=== PATIENT | male | born 1975 | race Caucasian/White ===

== ENCOUNTER 2022-07-28 02:22 | Emergency (ER) | payer BC ==
[2022-07-28 02:37] VITALS: BP 144/72; PULSE 68; RESP 20; TEMP 97.6; BMI 30.8
[2022-07-28] MEDS ORDERED: MAGNESIUM SULF 50% (8.12 MEQ/2 ML-1 GM VIAL) IVPB ONE (03:16)
[2022-07-28] MEDS ORDERED: DEXAMETHASONE SOD PHOSPHATE 20 MG/5 ML VIAL IVPB ONE (03:17)
[2022-07-28] MEDS ORDERED: DEXAMETHASONE SOD PHOSPHATE 10 MG/1 ML VIAL ONE (03:24)
[2022-07-28] MEDS ORDERED: ALBUTEROL SO4 2.5/IPRATROPIUM 0.5 INH SOL 3 ML VIAL.NEB. NEB ONE (03:25)
[2022-07-28] MEDS ORDERED: MAGNESIUM SULFATE IN WATER 2 GM/50 ML IVPB IVPB ONE (03:29)
[2022-07-28] MEDS: ALBUTEROL SO4 2.5/IPRATROPIUM 0.5 INH SOL 3 ML VIAL.NEB. NEB SCH ×4 (03:40→04:21)
[2022-07-28 04:12] LABS: ALBUMIN 3.6 g/dl (3.4-5.0); BLOOD UREA NITROGEN 14.3 mg/dL (7-18); CALCIUM 9.4 mg/dL (8.5-10.1)
[2022-07-28 04:15] LABS: CREATININE 1.2 mg/dL (0.55-1.3)
[2022-07-28 04:17] LABS: BILIRUBIN,TOTAL 0.6 mg/dL (0.2-1); TOT PROT 6.5 g/dl (6.4-8.2)
[2022-07-28 04:24] LABS: BASO % 0.7 % (0-2.0); EOS % 8.3 % (0-4.5); HEMATOCRIT 48.7 % (35.4-49); HEMOGLOBIN 16.5 GM/dL (11.7-16.9); LYMPH % 31.3 % (8-40); MEAN CELL VOLUME 88.3 fl (80-96); MEAN PLT VOLUME 9.9 fl (7.5-11.1); MONO % 7.6 % (3.8-10.2); NEUT % 52.1 % (42.8-82.8); PLATELET COUNT 231 10^3/uL (134-434); RBC 5.51 M/mm3 (4.00-5.60); RDW 13.5 % (11.9-15.9); WHITE BLOOD COUNT 7.2 K/mm3 (4.0-10.0)
== END 2022-07-28 04:54 | disposition home or self-care (01) ==
LOC: JER 02:22
PROC: 3E033GC Introduction of Other Therapeutic Substance into Peripheral Vein, Percutaneous Approach (ICD-10-PCS; principal; 2022-07-28)
PROC: 3E0F7GC Introduction of Other Therapeutic Substance into Respiratory Tract, Via Natural or Artificial Opening (ICD-10-PCS; 2022-07-28)
DX: J45.909 Unspecified asthma, uncomplicated (principal)
CPT/HCPCS: 0241U-QW; 36415; 71046-TC-FY; 80053; 85025; 99285-25

== ENCOUNTER 2022-08-12 19:51 | Emergency (ER) | payer BC ==
[2022-08-12 19:56] VITALS: BP 129/88; PULSE 84; RESP 22; TEMP 97.4; BMI 30.4
[2022-08-12] MEDS ORDERED: ALBUTEROL SO4 2.5/IPRATROPIUM 0.5 INH SOL 3 ML VIAL.NEB. NEB ONE ×2 (21:58→22:00)
[2022-08-12] MEDS ORDERED: predniSONE 20 MG TABLET (UD) PO ONE (21:59)
[2022-08-12] MEDS ORDERED: predniSONE 20 MG TABLET (UD) ONE (22:00)
== END 2022-08-12 22:56 | disposition home or self-care (01) ==
LOC: JER 19:51
PROC: 3E0F7GC Introduction of Other Therapeutic Substance into Respiratory Tract, Via Natural or Artificial Opening (ICD-10-PCS; principal; 2022-08-12)
DX: J45.901 Unspecified asthma with (acute) exacerbation (principal)
CPT/HCPCS: 71046-TC-FY; 99283-25

== ENCOUNTER 2022-11-10 19:48 | Inpatient (IN) | payer BC ==
[2022-11-10 19:57] VITALS: BMI 29.7
[2022-11-10] MEDS ORDERED: methylPREDNISolone NA SUCC 125 MG/2 ML VIAL IVPUSH ONE (20:10)
[2022-11-10] MEDS: ALBUTEROL SO4 2.5/IPRATROPIUM 0.5 INH SOL 3 ML VIAL.NEB. NEB SCH ×3 (20:16→21:00)
[2022-11-10] MEDS ORDERED: MAGNESIUM SULFATE IN WATER 2 GM/50 ML IVPB IVPB ONE (20:17)
[2022-11-10] MEDS ORDERED: methylPREDNISolone NA SUCC 125 MG/2 ML VIAL ONE (20:17)
[2022-11-10 20:49] LABS: VENOUS BASE EXCESS 1.3 mmol/L (-2-2); VENOUS O2 SATURATION 63.6 % (70-80); VENOUS PCO2 51.2 mmHg (38-52); VENOUS PH 7.355 (7.310-7.410)
[2022-11-10 20:52] LABS: BASO % 0.7 % (0-2.0); EOS % 7.3 % (0-4.5); HEMATOCRIT 46.9 % (35.4-49); HEMOGLOBIN 16.2 GM/dL (11.7-16.9); LYMPH % 18.5 % (8-40); MCH 30.4 pg (25.7-33.7); MCHC 34.6 g/dl (32.0-35.9); MEAN CELL VOLUME 87.7 fl (80-96); MONO % 5.3 % (3.8-10.2); NEUT % 68.2 % (42.8-82.8); PLATELET COUNT 247 10^3/uL (134-434); RBC 5.35 M/mm3 (4.00-5.60); RDW 13.6 % (11.9-15.9); WHITE BLOOD COUNT 10.2 K/mm3 (4.0-10.0)
[2022-11-10 21:12] LABS: ALBUMIN 3.9 g/dl (3.4-5.0); BLOOD UREA NITROGEN 18.2 mg/dL (7-18); CALCIUM 9.2 mg/dL (8.5-10.1); MAGNESIUM 2.4 mg/dL (1.8-2.4)
[2022-11-10 21:14] LABS: CREATININE 1.2 mg/dL (0.55-1.3)
[2022-11-10 21:16] LABS: BILIRUBIN,TOTAL 0.4 mg/dL (0.2-1)
[2022-11-10] MEDS: ALBUTEROL SO4 0.083% IH SOL 2.5 MG/3 ML VIAL.NEB. NEB SCH ×2 (22:42→22:44)
[2022-11-10] MEDS ORDERED: ALBUTEROL SO4 0.5 % INH SOLN 2.5 MG/0.5 ML VIAL.NEB. NEB ONE (22:43)
[2022-11-11] MEDS: ALBUTEROL SO4 0.083% IH SOL 2.5 MG/3 ML VIAL.NEB. NEB SCH ×2 (00:18)
[2022-11-11] MEDS ORDERED: ALBUTEROL SO4 2.5/IPRATROPIUM 0.5 INH SOL 3 ML VIAL.NEB. NEB PRN (02:00)
[2022-11-11] MEDS ORDERED: AZITHROMYCIN IVPB 500 MG in DEXTROSE 5%-WATER - 250 ML IVPB ONE (02:01)
[2022-11-11] MEDS: methylPREDNISolone NA SUCC 40 MG/1 ML VIAL IVPUSH SCH ×3 (02:09→17:45)
[2022-11-11] MEDS ORDERED: AZITHROMYCIN IVPB 500 MG/250 ML BAG IVPB ONE (02:21)
[2022-11-11 09:06] LABS: BASO % 0.2 % (0-2.0); EOS % 0.1 % (0-4.5); HEMATOCRIT 45.1 % (35.4-49); HEMOGLOBIN 15.7 GM/dL (11.7-16.9); LYMPH % 9.4 % (8-40); MCH 30.6 pg (25.7-33.7); MCHC 34.9 g/dl (32.0-35.9); MEAN CELL VOLUME 87.6 fl (80-96); MEAN PLT VOLUME 9.1 fl (7.5-11.1); NEUT % 88.3 % (42.8-82.8); PLATELET COUNT 246 10^3/uL (134-434); RBC 5.15 M/mm3 (4.00-5.60); RDW 14.1 % (11.9-15.9); WHITE BLOOD COUNT 7.8 K/mm3 (4.0-10.0)
[2022-11-11 09:23] LABS: ALBUMIN 3.8 g/dl (3.4-5.0)
[2022-11-11 09:24] LABS: BLOOD UREA NITROGEN 14.1 mg/dL (7-18); CALCIUM 8.8 mg/dL (8.5-10.1)
[2022-11-11 09:26] LABS: BILIRUBIN,TOTAL 0.6 mg/dL (0.2-1)
[2022-11-11 09:30] LABS: TOT PROT 6.9 g/dl (6.4-8.2)
[2022-11-11] MEDS: CEFTRIAXONE 1 GM in DEXTROSE 5%-WATER - 50 ML IVPB SCH (09:52)
[2022-11-11] MEDS: ENOXAPARIN NA (PORCINE) 40 MG/0.4 ML DISP.SYRIN SQ SCH (09:52)
[2022-11-11] MEDS: ALBUTEROL SO4 2.5/IPRATROPIUM 0.5 INH SOL 3 ML VIAL.NEB. NEB SCH ×2 (14:08→21:03)
[2022-11-11] MEDS ORDERED: ACETAMINOPHEN 325 MG TABLET (FP) PO ONE (15:30)
[2022-11-11] MEDS ORDERED: ACETAMINOPHEN 325 MG TABLET (FP) PO PRN (17:13)
[2022-11-11] MEDS: MONTELUKAST NA 10 MG TABLET PO SCH (23:02)
[2022-11-12] MEDS: methylPREDNISolone NA SUCC 40 MG/1 ML VIAL IVPUSH SCH ×3 (02:39→19:05)
[2022-11-12] MEDS: ALBUTEROL SO4 2.5/IPRATROPIUM 0.5 INH SOL 3 ML VIAL.NEB. NEB SCH ×3 (08:45→20:15)
[2022-11-12] MEDS: CEFTRIAXONE 1 GM in DEXTROSE 5%-WATER - 50 ML IVPB SCH (10:58)
[2022-11-12] MEDS: ENOXAPARIN NA (PORCINE) 40 MG/0.4 ML DISP.SYRIN SQ SCH (11:05)
[2022-11-12] MEDS: MONTELUKAST NA 10 MG TABLET PO SCH (23:12)
[2022-11-13] MEDS: methylPREDNISolone NA SUCC 40 MG/1 ML VIAL IVPUSH SCH ×4 (02:46→21:19)
[2022-11-13] MEDS: ALBUTEROL SO4 2.5/IPRATROPIUM 0.5 INH SOL 3 ML VIAL.NEB. NEB SCH ×3 (07:55→20:10)
[2022-11-13] MEDS: CEFTRIAXONE 1 GM in DEXTROSE 5%-WATER - 50 ML IVPB SCH (10:13)
[2022-11-13] MEDS: ENOXAPARIN NA (PORCINE) 40 MG/0.4 ML DISP.SYRIN SQ SCH (10:13)
[2022-11-13] MEDS: MONTELUKAST NA 10 MG TABLET PO SCH (21:18)
[2022-11-13 21:21] VITALS: RESP 20
[2022-11-14] MEDS: ALBUTEROL SO4 2.5/IPRATROPIUM 0.5 INH SOL 3 ML VIAL.NEB. NEB SCH ×2 (07:58→14:45)
[2022-11-14] MEDS: ENOXAPARIN NA (PORCINE) 40 MG/0.4 ML DISP.SYRIN SQ SCH (09:59)
[2022-11-14] MEDS: CEFTRIAXONE 1 GM in DEXTROSE 5%-WATER - 50 ML IVPB SCH (09:59)
[2022-11-14] MEDS: methylPREDNISolone NA SUCC 40 MG/1 ML VIAL IVPUSH SCH (09:59)
[2022-11-14] MEDS ORDERED: predniSONE 20 MG TABLET (UD) PO SCH (13:00)
[2022-11-14 14:51] VITALS: BP 159/83; PULSE 83; TEMP 98.2
== END 2022-11-14 16:13 | disposition home or self-care (01) | DRG 202 ==
LOC: JER 19:48 → JERBED 22:46 → J8W 11-11 03:27
PROVIDERS: ADMIT Internal Medicine; ATTEND Internal Medicine
DX: J45.901 Unspecified asthma with (acute) exacerbation (principal); J18.9 Pneumonia, unspecified organism; J98.11 Atelectasis
CPT/HCPCS: 0241U-QW; 36415; 71045-TC-FY; 80053; 82803; 83735; 85025; 87899; 93005; 93010; 94150; 94640; 99285-25